=== PATIENT | female | born 1945 | race Caucasian/White ===

== ENCOUNTER 2021-12-24 21:24 | Inpatient (IN) | payer MEDICARE ==
[2021-12-24 23:14] LABS: #Eosinphils 0.3 10x3/uL (0.0-0.5); #Monocytes 0.5 10x3/uL (0.0-1.1); #Neutrophils 7.6 10x3/uL (1.5-8.4); %Basophils 0.2 % (0.0-2.0); %Eosinophils 2.7 % (0.0-6.0); %Lymphocytes 7.8 % (18.0-47.0); %Monocytes 5.9 % (0.0-10.0); Hemoglobin 12.2 g/dL (12.0-15.5); Mean Corpuscular HGB CONC 34.2 g/dL (32.0-36.0); Mean Corpuscular Hemoglobin 30.1 pg (27.0-33.0); Mean Corpuscular Volume 88.1 fl (81.6-98.3); Mean Platelet Volume 10.6 fl (7.4-10.4); Platelet Count 180 10x3/uL (150-450); RBC Distribution Width 12.8 % (11.5-14.5); Red Blood Cell (RBC) Count 4.05 10x6/uL (3.90-5.03); White Blood Cell (WBC) Count 9.2 10x3/uL (3.5-10.5)
[2021-12-24] MEDS ORDERED: Ondansetron PF 4 MG/2 ML Vial ONE (23:18)
[2021-12-24] MEDS ORDERED: Fentanyl 100 MCG/2 ML VIAL ONE (23:19)
[2021-12-24 23:27] LABS: ALT (SGPT) 13 U/L (8-55); AST (SGOT) 17 U/L (5-34); Albumin 3.9 g/dL (3.4-4.8); Alkaline Phosphatase 52 U/L (40-110); Anion Gap 15 mmol/L (10-20); BUN (Urea Nitrogen) 11 mg/dL (9.8-20.1); Bilirubin, Total 0.7 mg/dL (0.2-1.2); Calc. Creatinine Clearance 0 mL/min (70-130); Calcium 9.3 mg/dL (7.8-10.44); Carbon Dioxide 26 mmol/L (23-31); Chloride 101 mmol/L (98-107); Globulin 2.8 g/dL (2.4-3.5); Glucose 125 mg/dL (83-110); Protein, Total 6.7 g/dL (5.8-8.1); Sodium 139 mmol/L (136-145)
[2021-12-24 23:28] LABS: Potassium 2.8 mmol/L (3.5-5.1)
[2021-12-24] MEDS ORDERED: HYDROcodone/Acetaminophen 7.5/325 mg Tablet PO PRN (23:28)
[2021-12-24] MEDS ORDERED: Bisacodyl 5 MG TAB PO PRN (23:28)
[2021-12-24] MEDS ORDERED: Ondansetron PF 4 MG/2 ML Vial IVP PRN (23:28)
[2021-12-24] MEDS ORDERED: hydrALAZINE 20 MG/ML VIAL SLOW IVP PRN (23:32)
[2021-12-24 23:51] LABS: Magnesium 1.5 mg/dL (1.6-2.6)
[2021-12-25 00:14] LABS: INR-International Normal Ratio 1.5; Prothrombin Time 16.4 sec (9.5-12.1)
[2021-12-25 00:30] LABS: SARS-CoV-2 NAA Rapid Test Not Detected (NotDetected)
[2021-12-25] MEDS ORDERED: Morphine 2 MG/ML VIAL ONE (00:32)
[2021-12-25 01:16] VITALS: BMI 16.2
[2021-12-25] MEDS ORDERED: Magnesium 2 GM/50 ML BAG (IN WATER) ONE (01:39)
[2021-12-25] MEDS ORDERED: Potassium Chloride 20 MEQ TAB PO SCH (02:00)
[2021-12-25] MEDS ORDERED: Magnesium 2 GM/50 ML(in water) 2 GM in Premix Bag 1 BAG IVPB SCH (02:00)
[2021-12-25] MEDS: Potassium Chloride 20 MEQ in Lactated Ringer's 1,000 ML IV SCH ×3 (03:05→23:52)
[2021-12-25] MEDS: Morphine 2 MG/ML VIAL SLOW IVP PRN ×3 (04:52→20:29)
[2021-12-25 04:55] LABS: #Eosinphils 0.1 10x3/uL (0.0-0.5); #Monocytes 0.6 10x3/uL (0.0-1.1); #Neutrophils 6.8 10x3/uL (1.5-8.4); %Basophils 0.5 % (0.0-2.0); %Eosinophils 0.9 % (0.0-6.0); %Lymphocytes 12.7 % (18.0-47.0); %Monocytes 6.4 % (0.0-10.0); %Neutrophils 79.2 % (40.0-75.0); Hemoglobin 12.3 g/dL (12.0-15.5); Mean Corpuscular HGB CONC 33.6 g/dL (32.0-36.0); Mean Corpuscular Hemoglobin 29.8 pg (27.0-33.0); Mean Corpuscular Volume 88.6 fl (81.6-98.3); Mean Platelet Volume 10.9 fl (7.4-10.4); Platelet Count 164 10x3/uL (150-450); Red Blood Cell (RBC) Count 4.13 10x6/uL (3.90-5.03); White Blood Cell (WBC) Count 8.6 10x3/uL (3.5-10.5)
[2021-12-25 05:20] LABS: Anion Gap 17 mmol/L (10-20); BUN (Urea Nitrogen) 8 mg/dL (9.8-20.1); Calc. Creatinine Clearance 52 mL/min (70-130); Carbon Dioxide 25 mmol/L (23-31); Chloride 102 mmol/L (98-107); Potassium 3.6 mmol/L (3.5-5.1); Sodium 140 mmol/L (136-145)
[2021-12-25 05:21] LABS: ALT (SGPT) 10 U/L (8-55); AST (SGOT) 17 U/L (5-34); Albumin 3.6 g/dL (3.4-4.8); Alkaline Phosphatase 56 U/L (40-110); Bilirubin, Total 0.8 mg/dL (0.2-1.2); Calcium 8.6 mg/dL (7.8-10.44); Glucose 114 mg/dL (83-110); Magnesium 2.6 mg/dL (1.6-2.6); Protein, Total 6.6 g/dL (5.8-8.1)
[2021-12-25] MEDS: Famotidine 20 MG TAB PO SCH ×2 (09:19→21:51)
[2021-12-25] MEDS: Calcium Carbonate 600 MG + Vit D TAB PO SCH ×2 (09:19→20:03)
[2021-12-25] MEDS ORDERED: ceFAZolin 2 GM/Dextrose 50 ML 2 GM in Premix Bag 1 BAG IVPB SCH (15:00)
[2021-12-25] MEDS ORDERED: PROPOFOL 20 ML ONE (16:51)
[2021-12-25] MEDS ORDERED: Fentanyl 100 MCG/2 ML VIAL ONE ×2 (16:58→18:42)
[2021-12-25] MEDS ORDERED: ceFAZolin 2 GM/Dextrose 50 ML IVPB ONE ×2 (16:59→21:38)
[2021-12-25] MEDS ORDERED: Lidocaine 1% PF 5 ML VIAL ONE (17:38)
[2021-12-25] MEDS ORDERED: Rocuronium Bromide 10 MG/ML (10ML VIAL) ONE (17:38)
[2021-12-25] MEDS ORDERED: PHENYLEPHRINE-NS 100 MCG/ML 10 ML SYRINGE ONE (17:38)
[2021-12-25] MEDS ORDERED: Dexamethasone 4 mg/ml Vial ONE (17:38)
[2021-12-25] MEDS ORDERED: Ondansetron PF 4 MG/2 ML Vial ONE (17:38)
[2021-12-25] MEDS ORDERED: Glycopyrrolate 0.2 MG/ML 5 ML SYRINGE ONE (17:47)
[2021-12-25] MEDS: ceFAZolin 2 GM/Dextrose 50 ML 2 GM in Premix Bag 1 BAG IVPB SCH (21:51)
[2021-12-26] MEDS: Morphine 2 MG/ML VIAL SLOW IVP PRN ×2 (04:50→15:10)
[2021-12-26] MEDS: ceFAZolin 2 GM/Dextrose 50 ML 2 GM in Premix Bag 1 BAG IVPB SCH (05:10)
[2021-12-26 05:53] LABS: Bilirubin Neg (Negative); Blood, Urine 50 (Negative); Clarity Clear (Clear); Glucose, Urine (Dipstick) Normal (Negative); Ketone, Urine 50 mg/dL (Negative); Leukocyte Negative (Negative); Nitrite Negative (Negative); Protein, Urine (Dipstick) Negative (Neg-Trace); Urobilinogen Normal mg/dL (Less than 2)
[2021-12-26 06:31] LABS: Bacteria/HPF Rare-Few HPF (None Seen); Squamous Epithelial 0-3 HPF (0-3)
[2021-12-26 08:34] LABS: Hemoglobin 10.9 g/dL (12.0-15.5); Mean Corpuscular HGB CONC 33.6 g/dL (32.0-36.0); Mean Corpuscular Volume 89.3 fl (81.6-98.3); Mean Platelet Volume 10.5 fl (7.4-10.4); Platelet Count 158 10x3/uL (150-450); RBC Distribution Width 12.9 % (11.5-14.5); Red Blood Cell (RBC) Count 3.63 10x6/uL (3.90-5.03); White Blood Cell (WBC) Count 7.9 10x3/uL (3.5-10.5)
[2021-12-26 08:35] LABS: MDiff Complete? YES
[2021-12-26 08:46] LABS: Anion Gap 16 mmol/L (10-20); BUN (Urea Nitrogen) 6 mg/dL (9.8-20.1); Calc. Creatinine Clearance 52 mL/min (70-130); Calcium 8.5 mg/dL (7.8-10.44); Carbon Dioxide 22 mmol/L (23-31); Chloride 101 mmol/L (98-107); Glucose 108 mg/dL (83-110); Potassium 4.4 mmol/L (3.5-5.1); Sodium 135 mmol/L (136-145)
[2021-12-26] MEDS ORDERED: Enoxaparin Sodium 30 MG/0.3 ML SYRINGE SC SCH (09:00)
[2021-12-26] MEDS: Famotidine 20 MG TAB PO SCH ×2 (09:00→21:45)
[2021-12-26] MEDS: Calcium Carbonate 600 MG + Vit D TAB PO SCH ×2 (09:00→18:10)
[2021-12-26 09:19] LABS: Band 1 % (5-11); Lymphocytes 5 % (21-51); Monocytes 7 % (0-10); Neutrophil 87 % (42-75)
[2021-12-26 09:21] LABS: Platelet Morphology Comment Appears Adequate
[2021-12-26 09:22] LABS: RBC Morphology Normal
[2021-12-26] MEDS: Clotrimazole 2% 3 Day Vag Cr 22.2 GM TUBE VAG SCH (21:45)
[2021-12-27 05:01] LABS: Hemoglobin 10.2 g/dL (12.0-15.5); Mean Corpuscular HGB CONC 34.1 g/dL (32.0-36.0); Mean Corpuscular Hemoglobin 30.3 pg (27.0-33.0); Mean Corpuscular Volume 88.7 fl (81.6-98.3); Mean Platelet Volume 10.7 fl (7.4-10.4); Platelet Count 165 10x3/uL (150-450); Red Blood Cell (RBC) Count 3.37 10x6/uL (3.90-5.03); White Blood Cell (WBC) Count 6.8 10x3/uL (3.5-10.5)
[2021-12-27 05:07] LABS: Anion Gap 15 mmol/L (10-20); BUN (Urea Nitrogen) 9 mg/dL (9.8-20.1); Calc. Creatinine Clearance 50 mL/min (70-130); Calcium 8.7 mg/dL (7.8-10.44); Carbon Dioxide 27 mmol/L (23-31); Chloride 97 mmol/L (98-107); Glucose 96 mg/dL (83-110); Magnesium 1.5 mg/dL (1.6-2.6); Potassium 5.1 mmol/L (3.5-5.1); Sodium 134 mmol/L (136-145)
[2021-12-27] MEDS ORDERED: Electrolyte Replacement Protocol 1 EACH FS SCH (08:00)
[2021-12-27] MEDS ORDERED: Sodium Chloride 0.9% 1,000 ML IV SCH (08:00)
[2021-12-27] MEDS ORDERED: Magnesium 2 GM/50 ML(in water) 2 GM in Premix Bag 1 BAG IVPB SCH (08:30)
[2021-12-27] MEDS: Famotidine 20 MG TAB PO SCH ×2 (08:47→22:19)
[2021-12-27] MEDS: Enoxaparin Sodium 40 MG/0.4 ML SYRINGE SC SCH (08:48)
[2021-12-27] MEDS: Calcium Carbonate 600 MG + Vit D TAB PO SCH ×2 (08:49→18:35)
[2021-12-27] MEDS ORDERED: Metoprolol Tartrate 5 MG/5 ML VIAL IVP SCH (10:50)
[2021-12-27 12:01] LABS: Troponin I 0.744 ng/mL (< 0.028)
[2021-12-27] MEDS: Morphine 2 MG/ML VIAL SLOW IVP PRN ×2 (15:57→22:39)
[2021-12-27] MEDS: Carvedilol 3.125 MG TAB PO SCH (18:35)
[2021-12-27 19:13] LABS: Troponin I 0.493 ng/mL (< 0.028)
[2021-12-27] MEDS: Clotrimazole 2% 3 Day Vag Cr 22.2 GM TUBE VAG SCH (22:20)
[2021-12-27] MEDS: Ivabradine 5 MG TAB PO SCH (22:20)
[2021-12-27 22:30] LABS: Troponin I 0.519 ng/mL (< 0.028)
[2021-12-28 04:06] LABS: Hemoglobin 9.3 g/dL (12.0-15.5); Mean Corpuscular HGB CONC 33.3 g/dL (32.0-36.0); Mean Corpuscular Hemoglobin 29.9 pg (27.0-33.0); Mean Corpuscular Volume 89.7 fl (81.6-98.3); Mean Platelet Volume 10.6 fl (7.4-10.4); Platelet Count 151 10x3/uL (150-450); RBC Distribution Width 13.1 % (11.5-14.5); Red Blood Cell (RBC) Count 3.11 10x6/uL (3.90-5.03)
[2021-12-28 04:07] LABS: MDiff Complete? YES
[2021-12-28 04:25] LABS: Anion Gap 15 mmol/L (10-20); BUN (Urea Nitrogen) 9 mg/dL (9.8-20.1); Calc. Creatinine Clearance 57 mL/min (70-130); Calcium 8.3 mg/dL (7.8-10.44); Carbon Dioxide 27 mmol/L (23-31); Chloride 100 mmol/L (98-107); Glucose 88 mg/dL (83-110); Magnesium 1.9 mg/dL (1.6-2.6); Sodium 137 mmol/L (136-145)
[2021-12-28 04:29] LABS: Platelet Morphology Comment Appears Adequate; RBC Morphology Normal
[2021-12-28 04:32] LABS: Band 11 % (5-11); Eosinophils 3 % (0-10); Lymphocytes 13 % (21-51); Monocytes 7 % (0-10); Neutrophil 66 % (42-75)
[2021-12-28] MEDS ORDERED: Magnesium 2 GM/50 ML(in water) 2 GM in Premix Bag 1 BAG IVPB SCH (05:00)
[2021-12-28] MEDS ORDERED: Communication Order-Pharmacy FS SCH (07:45)
[2021-12-28] MEDS: Carvedilol 3.125 MG TAB PO SCH ×2 (08:59→17:39)
[2021-12-28] MEDS: Ivabradine 5 MG TAB PO SCH ×2 (09:00→21:09)
[2021-12-28] MEDS: Famotidine 20 MG TAB PO SCH ×2 (09:00→21:09)
[2021-12-28] MEDS: Calcium Carbonate 600 MG + Vit D TAB PO SCH ×2 (09:00→17:37)
[2021-12-28] MEDS: Enoxaparin Sodium 40 MG/0.4 ML SYRINGE SC SCH (09:00)
[2021-12-28] MEDS: Clotrimazole 2% 3 Day Vag Cr 22.2 GM TUBE VAG SCH (21:09)
[2021-12-29 05:03] LABS: #Eosinphils 0.2 10x3/uL (0.0-0.5); #Monocytes 0.4 10x3/uL (0.0-1.1); #Neutrophils 2.9 10x3/uL (1.5-8.4); %Basophils 0.7 % (0.0-2.0); %Eosinophils 4.6 % (0.0-6.0); %Lymphocytes 18.5 % (18.0-47.0); %Neutrophils 65.7 % (40.0-75.0); Hemoglobin 9.3 g/dL (12.0-15.5); Mean Corpuscular HGB CONC 33.8 g/dL (32.0-36.0); Mean Corpuscular Volume 88.7 fl (81.6-98.3); Mean Platelet Volume 10.7 fl (7.4-10.4); Platelet Count 164 10x3/uL (150-450); RBC Distribution Width 12.9 % (11.5-14.5); White Blood Cell (WBC) Count 4.4 10x3/uL (3.5-10.5)
[2021-12-29 05:13] LABS: INR-International Normal Ratio 0.9; PTT 25.6 sec (22.0-33.0); Prothrombin Time 9.9 sec (9.5-12.1)
[2021-12-29 05:20] LABS: ALT (SGPT) Less than 6 U/L (8-55); AST (SGOT) 13 U/L (5-34); Albumin 2.6 g/dL (3.4-4.8); Alkaline Phosphatase 48 U/L (40-110); Anion Gap 14 mmol/L (10-20); BUN (Urea Nitrogen) 8 mg/dL (9.8-20.1); Bilirubin, Total 0.5 mg/dL (0.2-1.2); Calc. Creatinine Clearance 59 mL/min (70-130); Calcium 7.9 mg/dL (7.8-10.44); Carbon Dioxide 27 mmol/L (23-31); Chloride 98 mmol/L (98-107); Globulin 2.6 g/dL (2.4-3.5); Glucose 93 mg/dL (83-110); Magnesium 1.9 mg/dL (1.6-2.6); Potassium 4.2 mmol/L (3.5-5.1); Protein, Total 5.2 g/dL (5.8-8.1); Sodium 135 mmol/L (136-145)
[2021-12-29] MEDS: Famotidine 20 MG TAB PO SCH ×2 (05:47→21:23)
[2021-12-29] MEDS: Ivabradine 5 MG TAB PO SCH ×2 (05:47→21:23)
[2021-12-29] MEDS: Carvedilol 3.125 MG TAB PO SCH ×2 (05:47→19:49)
[2021-12-29] MEDS ORDERED: Magnesium 2 GM/50 ML(in water) 2 GM in Premix Bag 1 BAG IVPB SCH (06:00)
[2021-12-29] MEDS ORDERED: Nitroglycerin 50 MG/250 ML BOT 250 ML ONE (07:38)
[2021-12-29] MEDS ORDERED: Heparin 10,000 UNITS/ 10 ML VIAL ONE (07:38)
[2021-12-29] MEDS ORDERED: Verapamil 5 MG/2 ML VIAL ONE (07:39)
[2021-12-29] MEDS ORDERED: Adenosine 6 MG/2 ML VIAL ONE (07:39)
[2021-12-29] MEDS ORDERED: Bivalirudin 250 MG VIAL ONE (07:39)
[2021-12-29] MEDS ORDERED: Lidocaine 1% MPF 2 ML VIAL ONE (07:55)
[2021-12-29] MEDS ORDERED: Midazolam HCl 2 mg/2 ml Vial ONE (08:46)
[2021-12-29] MEDS ORDERED: Lidocaine 1% 20 ML MDV ONE (08:53)
[2021-12-29] MEDS: Calcium Carbonate 600 MG + Vit D TAB PO SCH ×2 (09:00→19:49)
[2021-12-29] MEDS ORDERED: Atropine Sulfate 0.4 mg/1 ml Vial ONE (09:05)
[2021-12-29] MEDS ORDERED: Iopamidol 300 61% 100 ML VIAL FS ONE (10:59)
[2021-12-29] MEDS: Clotrimazole 2% 3 Day Vag Cr 22.2 GM TUBE VAG SCH (21:09)
[2021-12-30] MEDS: Acetaminophen 325 MG TAB PO PRN ×3 (03:14→23:17)
[2021-12-30 04:44] LABS: Magnesium 1.9 mg/dL (1.6-2.6)
[2021-12-30] MEDS ORDERED: Magnesium 2 GM/50 ML(in water) 2 GM in Premix Bag 1 BAG IVPB SCH (05:15)
[2021-12-30] MEDS ORDERED: Magnesium 2 GM/50 ML BAG (IN WATER) ONE (05:56)
[2021-12-30] MEDS: Ivabradine 5 MG TAB PO SCH ×2 (10:53→21:00)
[2021-12-30] MEDS: Carvedilol 3.125 MG TAB PO SCH ×2 (10:53→17:34)
[2021-12-30] MEDS: Calcium Carbonate 600 MG + Vit D TAB PO SCH ×2 (10:53→17:34)
[2021-12-30] MEDS: Famotidine 20 MG TAB PO SCH (10:53)
[2021-12-30] MEDS ORDERED: Polyethylene Glycol 3350 17 GM Packet PO SCH (15:00)
[2021-12-30] MEDS: Lidocaine 5% Patch TD SCH (15:47)
[2021-12-30] MEDS: Enoxaparin Sodium 40 MG/0.4 ML SYRINGE SC SCH (20:44)
[2021-12-30] MEDS: Clotrimazole 2% 3 Day Vag Cr 22.2 GM TUBE VAG SCH (20:59)
[2021-12-30] MEDS: Estrogens, Conjugated 30 GM TUBE VAG SCH (21:05)
[2021-12-31] MEDS: Transdermal Patch Removal TOP SCH (04:25)
[2021-12-31 06:37] LABS: Magnesium 1.9 mg/dL (1.6-2.6)
[2021-12-31 06:38] LABS: Phosphorus 2.8 mg/dL (2.3-4.7)
[2021-12-31] MEDS: Ivabradine 5 MG TAB PO SCH ×2 (08:50→21:48)
[2021-12-31] MEDS: Calcium Carbonate 600 MG + Vit D TAB PO SCH ×2 (08:50→17:50)
[2021-12-31] MEDS: Carvedilol 3.125 MG TAB PO SCH ×2 (08:50→18:22)
[2021-12-31] MEDS: Polyethylene Glycol 3350 17 GM Packet PO SCH (08:51)
[2021-12-31] MEDS ORDERED: Magnesium 2 GM/50 ML(in water) 2 GM in Premix Bag 1 BAG IVPB SCH (09:00)
[2021-12-31 09:10] LABS: #Eosinphils 0.1 10x3/uL (0.0-0.5); #Monocytes 0.5 10x3/uL (0.0-1.1); #Neutrophils 5.6 10x3/uL (1.5-8.4); %Basophils 0.4 % (0.0-2.0); %Eosinophils 1.6 % (0.0-6.0); %Lymphocytes 10.7 % (18.0-47.0); %Monocytes 6.6 % (0.0-10.0); %Neutrophils 80.4 % (40.0-75.0); Hemoglobin 10.5 g/dL (12.0-15.5); Mean Corpuscular HGB CONC 33.4 g/dL (32.0-36.0); Mean Corpuscular Volume 89.7 fl (81.6-98.3); Mean Platelet Volume 10.3 fl (7.4-10.4); Platelet Count 188 10x3/uL (150-450); RBC Distribution Width 12.6 % (11.5-14.5)
[2021-12-31 09:21] LABS: Anion Gap 17 mmol/L (10-20); BUN (Urea Nitrogen) 7 mg/dL (9.8-20.1); Calc. Creatinine Clearance 62 mL/min (70-130); Calcium 8.6 mg/dL (7.8-10.44); Carbon Dioxide 24 mmol/L (23-31); Chloride 99 mmol/L (98-107); Glucose 88 mg/dL (83-110); Potassium 4.7 mmol/L (3.5-5.1); Sodium 135 mmol/L (136-145)
[2021-12-31] MEDS: Acetaminophen 325 MG TAB PO PRN ×2 (12:40→21:49)
[2021-12-31] MEDS: Lidocaine 5% Patch TD SCH (16:10)
[2021-12-31] MEDS: Enoxaparin Sodium 40 MG/0.4 ML SYRINGE SC SCH (21:50)
[2021-12-31] MEDS: Estrogens, Conjugated 30 GM TUBE VAG SCH (21:51)
[2021-12-31] MEDS: Clotrimazole 2% 3 Day Vag Cr 22.2 GM TUBE VAG SCH (21:51)
[2022-01-01] MEDS: Acetaminophen 325 MG TAB PO PRN ×5 (03:25→20:26)
[2022-01-01] MEDS ORDERED: Magnesium 2 GM/50 ML(in water) 2 GM in Premix Bag 1 BAG IVPB SCH (05:00)
[2022-01-01] MEDS: Calcium Carbonate 600 MG + Vit D TAB PO SCH ×2 (07:59→16:32)
[2022-01-01] MEDS: Carvedilol 3.125 MG TAB PO SCH ×2 (08:00→16:32)
[2022-01-01] MEDS: Ivabradine 5 MG TAB PO SCH ×2 (08:00→20:27)
[2022-01-01] MEDS: Polyethylene Glycol 3350 17 GM Packet PO SCH (08:01)
[2022-01-01 11:54] LABS: #Eosinphils 0.1 10x3/uL (0.0-0.5); #Monocytes 0.5 10x3/uL (0.0-1.1); %Basophils 0.4 % (0.0-2.0); %Lymphocytes 17.8 % (18.0-47.0); %Monocytes 8.5 % (0.0-10.0); %Neutrophils 70.9 % (40.0-75.0); Hemoglobin 10.3 g/dL (12.0-15.5); Mean Corpuscular HGB CONC 32.9 g/dL (32.0-36.0); Mean Corpuscular Hemoglobin 29.8 pg (27.0-33.0); Mean Corpuscular Volume 90.5 fl (81.6-98.3); Mean Platelet Volume 10.7 fl (7.4-10.4); Platelet Count 231 10x3/uL (150-450); RBC Distribution Width 12.6 % (11.5-14.5); Red Blood Cell (RBC) Count 3.46 10x6/uL (3.90-5.03); White Blood Cell (WBC) Count 5.6 10x3/uL (3.5-10.5)
[2022-01-01 12:54] LABS: Anion Gap 19 mmol/L (10-20); BUN (Urea Nitrogen) 9 mg/dL (9.8-20.1); Calc. Creatinine Clearance 58 mL/min (70-130); Calcium 8.7 mg/dL (7.8-10.44); Carbon Dioxide 21 mmol/L (23-31); Chloride 98 mmol/L (98-107); Glucose 103 mg/dL (83-110); Potassium 4.5 mmol/L (3.5-5.1); Sodium 133 mmol/L (136-145)
[2022-01-01] MEDS: Transdermal Patch Removal TOP SCH (16:31)
[2022-01-01] MEDS: Lidocaine 5% Patch TD SCH (16:31)
[2022-01-01] MEDS: Enoxaparin Sodium 40 MG/0.4 ML SYRINGE SC SCH (20:25)
[2022-01-01] MEDS: Clotrimazole 2% 3 Day Vag Cr 22.2 GM TUBE VAG SCH (20:27)
[2022-01-01] MEDS: Estrogens, Conjugated 30 GM TUBE VAG SCH (20:27)
[2022-01-02] MEDS: Acetaminophen 325 MG TAB PO PRN ×6 (04:22→21:03)
[2022-01-02] MEDS: Transdermal Patch Removal TOP SCH (04:45)
[2022-01-02 05:52] LABS: Magnesium 1.9 mg/dL (1.6-2.6)
[2022-01-02] MEDS ORDERED: Magnesium 2 GM/50 ML(in water) 2 GM in Premix Bag 1 BAG IVPB SCH (06:00)
[2022-01-02] MEDS ORDERED: Magnesium 2 GM/50 ML BAG (IN WATER) ONE (06:52)
[2022-01-02] MEDS: Ivabradine 5 MG TAB PO SCH ×2 (08:26→21:02)
[2022-01-02] MEDS: Calcium Carbonate 600 MG + Vit D TAB PO SCH ×2 (08:26→17:00)
[2022-01-02] MEDS: Carvedilol 3.125 MG TAB PO SCH ×2 (08:27→16:59)
[2022-01-02] MEDS: Polyethylene Glycol 3350 17 GM Packet PO SCH (08:33)
[2022-01-02 09:14] LABS: Anion Gap 15 mmol/L (10-20); BUN (Urea Nitrogen) 10 mg/dL (9.8-20.1); Calc. Creatinine Clearance 57 mL/min (70-130); Calcium 8.6 mg/dL (7.8-10.44); Carbon Dioxide 24 mmol/L (23-31); Chloride 100 mmol/L (98-107); Glucose 99 mg/dL (83-110); Potassium 4.2 mmol/L (3.5-5.1); Sodium 135 mmol/L (136-145)
[2022-01-02 09:18] LABS: #Eosinphils 0.1 10x3/uL (0.0-0.5); #Monocytes 0.4 10x3/uL (0.0-1.1); #Neutrophils 3.5 10x3/uL (1.5-8.4); %Basophils 0.6 % (0.0-2.0); %Eosinophils 1.8 % (0.0-6.0); %Lymphocytes 21.1 % (18.0-47.0); %Neutrophils 69.1 % (40.0-75.0); Hemoglobin 11.7 g/dL (12.0-15.5); Mean Corpuscular HGB CONC 30.8 g/dL (32.0-36.0); Mean Corpuscular Hemoglobin 29.9 pg (27.0-33.0); Mean Corpuscular Volume 97.2 fl (81.6-98.3); Mean Platelet Volume 10.3 fl (7.4-10.4); Platelet Count 219 10x3/uL (150-450); Red Blood Cell (RBC) Count 3.91 10x6/uL (3.90-5.03)
[2022-01-02] MEDS: Lidocaine Viscous Sol 2% 15 ml UD Cup SSP PRN ×2 (14:39→17:27)
[2022-01-02] MEDS: Lidocaine 5% Patch TD SCH (14:39)
[2022-01-02] MEDS: Clotrimazole 2% 3 Day Vag Cr 22.2 GM TUBE VAG SCH (21:05)
[2022-01-02] MEDS: Enoxaparin Sodium 40 MG/0.4 ML SYRINGE SC SCH (21:05)
[2022-01-02] MEDS: Estrogens, Conjugated 30 GM TUBE VAG SCH (21:14)
[2022-01-03] MEDS: Acetaminophen 325 MG TAB PO PRN ×3 (04:08→12:27)
[2022-01-03] MEDS: Transdermal Patch Removal TOP SCH (04:08)
[2022-01-03 05:52] LABS: Magnesium 2.1 mg/dL (1.6-2.6)
[2022-01-03] MEDS: Ivabradine 5 MG TAB PO SCH (08:33)
[2022-01-03] MEDS: Calcium Carbonate 600 MG + Vit D TAB PO SCH ×2 (08:34→17:30)
[2022-01-03] MEDS: Carvedilol 3.125 MG TAB PO SCH ×2 (08:34→17:25)
[2022-01-03] MEDS: Polyethylene Glycol 3350 17 GM Packet PO SCH (08:35)
[2022-01-03 09:22] LABS: #Eosinphils 0.1 10x3/uL (0.0-0.5); #Monocytes 0.4 10x3/uL (0.0-1.1); #Neutrophils 3.3 10x3/uL (1.5-8.4); %Basophils 0.8 % (0.0-2.0); %Eosinophils 1.3 % (0.0-6.0); %Monocytes 7.1 % (0.0-10.0); %Neutrophils 62.2 % (40.0-75.0); Anion Gap 16 mmol/L (10-20); BUN (Urea Nitrogen) 12 mg/dL (9.8-20.1); Calc. Creatinine Clearance 56 mL/min (70-130); Calcium 8.4 mg/dL (7.8-10.44); Carbon Dioxide 23 mmol/L (23-31); Chloride 100 mmol/L (98-107); Glucose 82 mg/dL (83-110); Hemoglobin 10.3 g/dL (12.0-15.5); Mean Corpuscular HGB CONC 32.9 g/dL (32.0-36.0); Mean Corpuscular Hemoglobin 29.5 pg (27.0-33.0); Mean Corpuscular Volume 89.7 fl (81.6-98.3); Mean Platelet Volume 10.2 fl (7.4-10.4); Platelet Count 278 10x3/uL (150-450); Potassium 4.1 mmol/L (3.5-5.1); RBC Distribution Width 13.3 % (11.5-14.5); Red Blood Cell (RBC) Count 3.49 10x6/uL (3.90-5.03); White Blood Cell (WBC) Count 5.3 10x3/uL (3.5-10.5)
[2022-01-03 09:44] LABS: Sodium 135 mmol/L (136-145)
[2022-01-03] MEDS: Lidocaine 5% Patch TD SCH (16:30)
[2022-01-03 18:04] VITALS: BP 91/53; TEMP 97.7
== END 2022-01-03 18:40 | DRG 521 ==
LOC: CSHERS 21:24 → CSHTELE 23:01 → OBSVTOIN 23:01 → INTOOBSV 23:01 → UNDOADMOB 23:01 → CSHTELE 12-25 01:00 → UNDOADMOB 12-25 01:00 → CSHTELE 12-25 11:26 → OBSVTOIN 12-25 11:26
PROVIDERS: ADMIT Internal Medicine; ATTEND Family Medicine
PROC: 0SRS0JA Replacement of Left Hip Joint, Femoral Surface with Synthetic Substitute, Uncemented, Open Approach (ICD-10-PCS; principal; 2021-12-25)
PROC: 0T9B70Z Drainage of Bladder with Drainage Device, Via Natural or Artificial Opening (ICD-10-PCS; 2021-12-26)
PROC: 4A023N7 Measurement of Cardiac Sampling and Pressure, Left Heart, Percutaneous Approach (ICD-10-PCS; 2021-12-29)
PROC: B2111ZZ Fluoroscopy of Multiple Coronary Arteries using Low Osmolar Contrast (ICD-10-PCS; 2021-12-29)
PROC: B2151ZZ Fluoroscopy of Left Heart using Low Osmolar Contrast (ICD-10-PCS; 2021-12-29)
DX: S72.012A Unspecified intracapsular fracture of left femur, initial encounter for closed fracture (principal); I50.21 Acute systolic (congestive) heart failure; Z68.1 Body mass index [BMI] 19.9 or less, adult; E44.0 Moderate protein-calorie malnutrition; E87.6 Hypokalemia; W19.XXXA Unspecified fall, initial encounter; M85.80 Other specified disorders of bone density and structure, unspecified site; N89.8 Other specified noninflammatory disorders of vagina; R33.9 Retention of urine, unspecified; I25.119 Atherosclerotic heart disease of native coronary artery with unspecified angina pectoris; R62.7 Adult failure to thrive; R13.10 Dysphagia, unspecified; D50.0 Iron deficiency anemia secondary to blood loss (chronic); Z20.822 Contact with and (suspected) exposure to COVID-19; Z85.3 Personal history of malignant neoplasm of breast; Y92.009 Unspecified place in unspecified non-institutional (private) residence as the place of occurrence of the external cause; Z91.040 Latex allergy status
CPT/HCPCS: 36415; 36416; 71260; 72170; 74177; 74220; 80048; 80053; 81001; 83735; 84100; 84443; 84484; 85025; 85027; 85610; 85730; 93005; 93010; 93306; 93458; 96365; 96366; 96367; 96374; 96375; 99152; C1713; C1760; C1769; C1776; C1894; G0378; J0153; J0461; J0583; J0690; J1100; J1644; J1650; J2250; J2270; J2405; J2704; J3010; J3475; J3480; J7050; J7120; Q9967; U0002